=== PATIENT | male | born 1980 | race African-American/Black ===

== ENCOUNTER 2023-07-11 17:14 | Emergency (ER) | payer MEDICAID ==
[2023-07-11] VITALS (21 sets, daily range): BP systolic 102–137; BP diastolic 66–92
[2023-07-11 18:30] LABS: BASO% 0.4 % (0-3); EOS% 2.7 % (0-8); HEMATOCRIT 43.1 % (39.0-50.0); HEMOGLOBIN 14.1 g/dl (14.0-18.0); IMMATURE GRANULOCYTES 0.2 % (0.0-5.0); MEAN CELL VOLUME 83.9 fL CALC (80.0-100.0); MEAN CORPUSCULAR HGB 27.4 pG CALC (26.0-32.0); MEAN CORPUSCULAR HGB CONC 32.7 g/dL CAL (32.0-36.0); MONO% 8.6 % (2-13); NEUT# 1.72 thou/uL (1.82-7.42); NEUT% 38.1 % (42-76); RED BLOOD COUNT 5.14 mill/uL (4.70-6.10); RED CELL DISTRI WIDTH 14.5 % (11.5-15.5)
[2023-07-11 18:32] LABS: URINE BILIRUBIN - DIPSTICK Negative (NEGATIVE); URINE BLOOD DIPSTICK Negative (NEGATIVE); URINE GLUCOSE - DIPSTICK Negative (NEGATIVE); URINE KETONE Negative (NEGATIVE); URINE LEUK ESTERASE Negative (NEGATIVE); URINE NITRITE - DIPSTICK Negative (Negative); URINE PROTEIN - DIPSTICK Negative (NEG-TRACE); URINE SPECIFIC GRAVITY 1.025; URINE UROBILINOGEN - DIPSTICK 0.2 E.U./dL (0.2)
[2023-07-11 18:33] LABS: URINE COLOR Yellow
[2023-07-11 18:42] LABS: ALBUMIN 4.4 g/dL (3.2-5.0); ALKALINE PHOSPHATASE 49 u/l (38-126); ANION GAP 9 (6-22 (CALC)); BILIRUBIN, TOTAL 0.3 mg/dL (0.2-1.3); BUN 14 mg/dL (9-20); BUN/CREATININE RATIO 13 (12-20 (CALC)); CARBON DIOXIDE 27 mmol/l (22-30); CHLORIDE 108 mmol/l (95-108); CREATININE 1.1 mg/dL (0.7-1.3); GFR FOR AFR.AMER. > 60 ML/MIN (>=60 (CALC)); GFR OTHER RACES > 60 ML/MIN (>=60 (CALC)); LIPASE 124 u/l (23-300); POTASSIUM 4.3 mmol/l (3.5-5.1); SGOT/AST 28 u/l (17-59); SODIUM 140 mmol/l (137-146); TOTAL PROTEIN 7.6 g/dL (6.3-8.2)
[2023-07-11] MEDS ORDERED: PROTONIX40 MG PO (22:50)
[2023-07-11] MEDS ORDERED: CLARITHROMYCIN500 MG PO (22:50)
[2023-07-11] MEDS ORDERED: AMOXICILLIN500 M2 PO (22:50)
== END 2023-07-11 23:21 | disposition home or self-care (01) ==
LOC: ED 17:14
PROVIDERS: Emergency Medicine
DX: A04.8 Other specified bacterial intestinal infections (principal)
CPT/HCPCS: S0164

== ENCOUNTER 2023-12-03 08:02 | Day surgery (SDC) | payer OTHER, MEDICAID ==
[~2023-12-03] VITALS: Ht 172.7 cm; Wt 83.5 kg
[~2023-12-03 08:02] MED LIST: ACID CONTROLLER10 MG PO; ALL DAY10 MG PO; AMOXICILLIN500 M2 PO; CLARITHROMYCIN500 MG PO; DICYCLOMINE HYD10 MG PO; PROTONIX40 MG PO
[2023-12-03] MEDS ORDERED: FAMOTIDINE 10MG/ML 2ML SDV IV ONE (08:06)
[2023-12-03] MEDS ORDERED: LACTATED RINGER'S 1,000 ML IV ONE (08:06)
[2023-12-03 11:07] VITALS: BP 122/85
[2023-12-03] MEDS ORDERED: PROPOFOL 500 MG/50 ML VIAL IV ONE (14:31)
[2023-12-03] MEDS ORDERED: GLYCOPYRROLATE 0.2 MG/ML IV ONE (14:31)
[2023-12-03] MEDS ORDERED: LIDOCAINE HCL 2% 2ML SDV IV ONE (14:31)
== END 2023-12-03 10:55 | disposition home or self-care (01) ==
LOC: ENDO 08:02 → ORM 08:45 → ENDO 09:40
PROVIDERS: ATTEND Surgery
DX: K21.9 Gastro-esophageal reflux disease without esophagitis (principal); R19.4 Change in bowel habit; R10.11 Right upper quadrant pain; R10.31 Right lower quadrant pain